=== PATIENT | female | born 1985 | race African-American/Black ===

== ENCOUNTER 2021-08-08 13:09 | Outpatient (CLI) | payer OTHER, SELFPAY ==
--- NOTE | ~2021-08-08 | MR_ITS ---
EXAMINATION: MR brain/brain stem wo/w con EXAM DATE: 08/08/2021 14:04 INDICATION: Abnormal reflex, inability to focus. TECHNIQUE: Magnetic resonance imaging (MRI) of the brain/brain stem obtained without contrast. Sagit tila T1, axial diffusion, gradient echo (T2*), T1, T2, FLAIR sequences obtained. Patient was then inj ected with 15 cc intravenous Multihance contrast. Axial and coronal postcontrast T1 weighted sequence s obtained. There is no prior study for comparison. FINDINGS: There is no 9 x 7 mm signal abnormality in the superior aspect of the left parotid superfic ial lobe, could be intraparotid lymph node, lymph node above the superficial parotid lobe, but primar y parotid mass not excludable. Consider parotid ultrasound for further evaluation. This is anterior t o the ear. There are no areas of restricted diffusion to suggest acute infarction. There is no acute hemorrhage seen on the T2*, a hemosiderin sensitive sequence. No intraparenchymal brain mass. The ventricles a re normal in size. There are no extra-axial collections. Flow voids are seen in the cerebral arteri es on the T2-weighted sequences consistent with their expected patency. The orbits are unremarkable. Soft tissue is unremarkable. There are no areas of abnormal enhancement on the postcontrast image s. IMPRESSION: 1. Nodule of soft tissue which could be small preauricular lymph node, or intraparotid lymph node. L ess likely primary parotid mass. Recommend ultrasound. 2. Normal brain. Reviewed, dictated and finalized at location B. IMPRESSION: 1. Nodule of soft tissue which could be small preauricular lymph node, or intr aparotid lymph node. Less likely primary parotid mass. Recommend ultrasound. 2. Normal brain.
[2021-08-08 13:43] LABS: Estimated Glomerular Filt Rate > 60
== END 2021-08-08 13:10 | disposition home or self-care (01) ==
PROVIDERS: PCP Family Medicine; Visit Provider Family Medicine
DX: R29.2 Abnormal reflex (principal)
CPT/HCPCS: 70553; A9577

== ENCOUNTER 2021-08-26 15:11 | Outpatient (CLI) | payer OTHER, SELFPAY ==
--- NOTE | ~2021-08-26 | US_ITS ---
EXAMINATION: US thyroid DATE: 08/26/2021 16:42 INDICATION: Cervical lymphadenopathy. TECHNIQUE: Multiple ultrasound images of the thyroid were obtained. COMPARISON: Brain MRI 08/08/2021 FINDINGS: The right thyroid lobe measures 4.1 x 1.6 x 1.5 cm. The left thyroid lobe measures 4.8 x 1.5 x 1.0 c m. There is normal echotexture and echogenicity throughout the thyroid gland. No discrete nodules id entified. Normal vascular flow is present. The parotid glands are normal. There are normal lymph node s in the neck. Inferior to left parotid gland, there is a 2.7 x 1.2 x 2.6 cm node. IMPRESSION: 1. Mildly enlarged lymph node in left neck, most likely reactive. Reviewed, dictated and finalized at location B.
== END 2021-08-26 15:12 | disposition home or self-care (01) ==
PROVIDERS: PCP Family Medicine; Visit Provider Family Medicine
DX: R59.9 Enlarged lymph nodes, unspecified (principal)
CPT/HCPCS: 76536